=== PATIENT | female | born 1995 | race Caucasian/White ===

== ENCOUNTER → 2019-05-17 | Outpatient (REF) | payer OTHER ==
[2019-05-17 21:13] LABS: CHLAMYDIA DNA AMPLIFICATION NEGATIVE (NEGATIVE); GC DNA AMPLIFICATION NEGATIVE (NEGATIVE)
== END ==
LOC: M SFHCLERA 12:18
PROVIDERS: ATTEND Nurse Practitioner Family
DX: R30.0 Dysuria (principal)

== ENCOUNTER → 2019-08-05 | Outpatient (REF) | payer OTHER | LOC: M SFHCLERA 16:08 | PROVIDERS: ATTEND Physician Assistant | DX: R30.0 Dysuria (principal) | CPT/HCPCS: 81002; 81025; 87088; 87186; 96372; G0463; J1885 ==

== ENCOUNTER → 2020-12-13 | Outpatient (CLI) | payer OTHER ==
--- NOTE | 2020-12-14 10:59 | REP ---
INDICATION: PREG 28+ GROWTH COMPARISON: None. TECHNIQUE: Transabdominal obstetrical ultrasound with color Doppler evaluation. FINDINGS: Examination demonstrates a single live intrauterine in cephalic presentation. motion is identified by technologist. Placenta is noted posterior/fundal and grade 1 without evidence for placenta previa or abruption. Amniotic fluid volume is normal. Cervix measures 4.5 cm in length and appears closed. [place]: 18.3 cm (9.1-23.2) Umbilical artery SD ratio: 2.57 (2.01-4.18). Gestational age by LMP 29 weeks 2 days with MARK ANTHONY 02/26/2021. Gestational age by current measurements 32 weeks 6 days with MARK ANTHONY 02/01/2021. FHR equals 141 beats per minute. BPD: 8.0 cm at 32 weeks 0 days HC: 29.3 cm at 32 weeks 2 days AC: 28.0 cm at 32 weeks 0 days FL: 6.8 cm at 35 weeks 0 days HL: 5.7 cm at 32 weeks 6 days HC/AC: 1.05 Estimated weight 2079 grams (greater than 97thpercentile). IMPRESSION: Single live intrauterine in cephalic presentation. Greater than expected estimated weight based on given age by LMP. <Electronically signed by Nick Griffiths > 12/14/20 [id number]
== END ==
LOC: M RAD 12:57
PROVIDERS: ATTEND Registered Nurse Maternal Newborn
DX: Z36.88 Encounter for antenatal screening for fetal macrosomia (principal); O26.843 Uterine size-date discrepancy, third trimester; Z3A.29 29 weeks gestation of pregnancy